=== PATIENT | female | born 1985 | race Caucasian/White ===

== ENCOUNTER 2017-04-05 13:30 | Observation (INO) | payer BC | END 2017-04-05 15:00 | disposition home or self-care (01) | LOC: FLD 13:30 | PROVIDERS: ADMIT Advanced Practice Midwife; ATTEND Advanced Practice Midwife | DX: O26.892 Other specified pregnancy related conditions, second trimester (principal); R10.32 Left lower quadrant pain; Z3A.27 27 weeks gestation of pregnancy ==